=== PATIENT | female | born 2000 | race Caucasian/White ===

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

== ENCOUNTER 2022-03-17 20:05 | Emergency (ER) | payer OTHER, BC, SELFPAY ==
[2022-03-17 20:06] VITALS: BP 123/55; PULSE 65; RESP 16; TEMP 36.4; O2SAT 100; BMI 38.5
[2022-03-17 20:08] VITALS: BP 123/55; PULSE 65; RESP 16; TEMP 36.4; O2SAT 100
--- NOTE | 2022-03-17 20:39 | EX.ED.DYSGE1 ---
HPI History of Present Illness Chief Complaint: Abd Pain Informant: patient Onset/Context/Timing Onset: Today Context: Gradual Onset Current Severity: Mild Maximum Severity: Moderate Narrative Narrative: Patient present secondary to abdominal pain along with vomiting and diarrhea. Patient states she is been vomiting for the last 4 hours or so. She has noted some blood streaks starting to appear. No fever or chills. She complains of pain across the mid abdomen. She states when her period starts she will often vomit, but it has never lasted this long. [facility] Medical History Chest pain Chronic neck and back pain Fatigue PCOS (polycystic ovarian syndrome) Severe headache SOB (shortness of breath) Home Medications dicyclomine 20 mg tablet 20 mg PO TID PRN abdominal cramping #14 tabs 03/17/22 [Rx Last Taken Unknown] metformin 500 mg tablet 1,500 mg PO DAILY 03/17/22 [History Last Taken Unknown] omeprazole magnesium 20 mg tablet,delayed release (Prilosec OTC) 20 mg PO DAILY #30 tabs 03/17/22 [Rx Last Taken Unknown] ondansetron 4 mg disintegrating tablet 4 mg PO Q8H PRN nausea and vomiting #10 tabs 03/17/22 [Rx Last Taken Unknown] ondansetron 4 mg disintegrating tablet mg 03/17/22 [History Last Taken Unknown] Allergy/AdvReac Type Severity Reaction Status Date / Time No Known Allergies Allergy Verified 05/11/21 12:43 Family History Other Asthma Diabetes Hypertension Social History Smoking Status: Never smoker alcohol intake: never ROS ROS ED Constitutional Constitutional ED: Denies chills or fever(s) Eyes Eyes: Denies change in vision or discharge from eye(s) ENT ENT ED: Denies discharge from eye(s), rhinorrhea or sore throat Cardiovascular Cardiovascular: Denies chest pain or palpitations Respiratory/Chest Respiratory/Chest: Denies cough or dyspnea Gastrointestinal Gastrointestinal: Reports abdominal pain, diarrhea, nausea and vomiting Genitourinary Genitourinary ED: Denies difficulty urinating or dysuria Musculoskeletal Musculoskeletal: Denies back pain or extremity pain Integumentary Denies Abrasions or rash Neurologic Neurologic: Denies headache(s) or weakness Allergic/Immunologic Allergic/Immunologic ED: Denies lip swelling or urticaria EXAM Physical Exam Const Vital Signs: 03/17/22 20:06 03/17/22 20:08 Temperature 97.6 F L 97.6 F L Temperature Source Oral Oral Pulse Rate 65 65 Respiratory Rate 16 16 Blood Pressure 123/55 H 123/55 H Blood Pressure Mean 77 77 Pulse Ox 100 100 Oxygen Delivery Method Room Air Room Air Positive well nourished and well developed General Appearance ED: well developed HEENT Reports moist mucous membranes Eyes PERRL and EOMs intact bilaterally Eyes Narrative: Few small broken capillaries noted around her eyes from vomiting. Neck no lymphadenopathy Chest Wall inspection of chest normal and palpation of chest normal Resp normal respiratory effort and clear to auscultation bilaterally Cardio regular rate and regular rhythm GI GI Narrative: Abdomen is soft with hypoactive bowel sounds. Mild diffuse tenderness. No guarding or rebound. Extremity normal to inspection Neuro oriented x3 Psych mental status grossly normal Skin no rashes or lesions noted MDM MDM MDM Narrative Medical decision making narrative: Patient was given Toradol, Bentyl, Zofran, Protonix. IV fluids were given. Lab work ordered. Lab Data Attestation: I reviewed the patient's lab results. Labs: Laboratory Results - last 24 hr 03/17/22 03/17/22 03/17/22 20:54 20:54 20:54 WBC 11.8 H RBC 4.57 Hgb 13.0 Hct 39.5 MCV 86.4 MCH 28.4 MCHC 32.9 RDW Std Deviation 38.9 RDW Coeff of Александр 12.2 Plt Count 319 MPV 10.7 Immature Gran % (Auto) 0.200 Neut % (Auto) 80.6 H Lymph % (Auto) 11.6 L [place] % (Auto) 4.5 Eos % (Auto) 2.8 Baso % (Auto) 0.3 Absolute Neuts (auto) 9.6 H Absolute Lymphs (auto) 1.37 Nucleated RBC % 0 Sodium 142 Potassium 3.8 Chloride 109 H Carbon Dioxide 26.0 Anion Gap 7 BUN 12 Creatinine 0.68 Estim Creat Clear Calc 117.76 Est GFR (MDRD) Af Amer 139 Est GFR (MDRD) Non-Af 115 BUN/Creatinine Ratio 17.5 Glucose 101 Calcium 9.3 Total Bilirubin 0.40 Direct Bilirubin 0.08 AST 17 ALT 33 Alkaline Phosphatase 94 Total Protein 8.1 Albumin 3.7 Globulin 4.4 H Serum , Qual NEGATIVE Treatment and Re-Evaluation Narrative: Patient's white blood cell count mildly elevated 11.8 with 80% neutrophils. Chemistry studies unremarkable. LFTs normal. test negative. Repeat evaluation nausea significantly improved. Patient states she is still having some cramping. Abdominal examination is benign with no focal tenderness. Patient will be given prescriptions for Zofran, Bentyl, Prilosec. Return instructions provided. Discharge Plan Triage Chief Complaint: Abd Pain ED Provider: Marta Laura Dx/Rx/DC Orders Clinical Impression: Gastroenteritis Instructions: ED Gastroenteritis, Noninfectious Prescriptions: New ondansetron 4 mg tablet,disintegrating 4 mg PO Q8H PRN (Reason: nausea and vomiting) Qty: 10 0RF omeprazole magnesium [Prilosec OTC] 20 mg tablet,delayed release (DR/EC) 20 mg PO DAILY Qty: 30 0RF dicyclomine 20 mg tablet 20 mg PO TID PRN (Reason: abdominal cramping) Qty: 14 0RF No Action metformin 500 mg Tablet 1,500 mg PO DAILY Rx Instructions: take 1 in the morning and 2 at night ondansetron 4 mg tablet,disintegrating Label Comments: DISSOLVE 1 TABLET IN MOUTH EVERY 6 HOURS NEEDED Stand Alone Forms: ED Work / School Excuse Primary Care Provider: Champ Navarro Referrals: Champ Navarro MD [Primary Care Provider] - 1 Week if not improving Disposition Disposition: Home, Self Care
[2022-03-17] MEDS: 0.9% Normal Saline 1,000 ML 1000 ML IV (20:56)
[2022-03-17] MEDS: Dicyclomine 20 MG/2 ML Vial IM (20:56)
[2022-03-17] MEDS: Ketorolac 30 MG/ML Syringe IV (20:56)
[2022-03-17] MEDS: Ondansetron 4 MG/2 ML Vial IV (20:56)
[2022-03-17 21:07] LABS: Absolute Lymphocyte Count 1.37 X10^3/uL (0.83-4.51); Absolute Neutrophil Count 9.6 X10^3/uL (2.0-7.7); Basophil# 0.03 X10^3/uL; Basophil% 0.3 % (0-1); Eosinophil# 0.33 X10^3/uL; Eosinophils% 2.8 % (0-5); Hematocrit 39.5 % (37-47); Lymphocyte # 1.37 X10^3/ul (0.83-4.51); Lymphocyte % 11.6 % (19-41); Mean Corp Hgb Conc 32.9 g/dL (32-36); Mean Corpuscular Hgb 28.4 pg (27.0-32.0); Mean Corpuscular Volume 86.4 fL (81-99); Mean Platelet Vol. 10.7 fl (6.2-12.0); Monocyte# 0.53 X10^3/uL; Monocyte% 4.5 % (0-10); NRBC Flagged by Analyzer 0 % (0-5); Neutrophil # 9.56 X10^3/uL (2.7-7.7); Neutrophil % 80.6 % (47-70); Platelet Count 319 K/mm3 (150-450); RBC Distribution Width CV 12.2 % (11.6-14.6); RBC Distribution Width SD 38.9 fl (35.1-43.9); Red Blood Count 4.57 M/mm3 (4.2-5.4); White Blood Count 11.8 K/mm3 (4.4-11.0)
[2022-03-17 21:20] LABS: Internal QC Validated? YES +Cl - CLEAR BKGD; Pregnancy, Serum, hCG Quali. NEGATIVE Negative
[2022-03-17 21:28] LABS: AST(SGOT) 17 U/L (15-37); Alanine Aminotransfer ALT/SGPT 33 U/L (13-56); Albumin, Serum 3.7 g/dL (3.2-5.0); Alkaline Phosphatase 94 U/L (45-117); Anion Gap 7 (5-15); BUN 12 mg/dL (7-18); BUN/Creat Ratio 17.5 RATIO (10-20); Bilirubin, Direct 0.08 mg/dL (0.00-0.30); Calcium,Total 9.3 mg/dL (8.5-10.1); Chloride 109 mmol/L (98-107); Creatinine, Serum 0.68 mg/dL (0.55-1.02); EST Glomerular Filtration Rate 115 mL/min (>60); Est Glom Filt Rate - Afr Amer 139 mL/min (>60); Estimated Creatinine Clearance 117.76 ml/min; Globulin 4.4 g/dL (2.2-4.2); Glucose 101 mg/dL (74-106); Potassium 3.8 mmol/L (3.5-5.1); Protein, Total 8.1 g/dL (6.4-8.2); Sodium Level 142 mmol/L (136-145)
== END 2022-03-17 22:04 | disposition home or self-care (01) ==
PROVIDERS: Emergency Provider Emergency Medicine; PCP Family Medicine; Visit Provider Emergency Medicine
DX: K52.9 Noninfective gastroenteritis and colitis, unspecified (principal); G89.29 Other chronic pain; M54.2 Cervicalgia; M54.9 Dorsalgia, unspecified; Z79.84 Long term (current) use of oral hypoglycemic drugs; Z79.899 Other long term (current) drug therapy
CPT/HCPCS: 80048; 80076; 84703; 85025; 96365; 96372; 96375; 99283; J7030; J2405